=== PATIENT | female | born 1970 | race Caucasian/White ===

== ENCOUNTER 2019-09-25 09:44 | Emergency (ER) | payer BC ==
[2019-09-25 10:46] VITALS: BP 159/92; PULSE 69
[2019-09-25] MEDS: GI Cocktail Oral Solution 30 ML PO ONE (11:10)
[2019-09-25] MEDS: diphenhydrAMINE 50 MG/ML SDV IVPUSH ONE (12:00)
[2019-09-25] MEDS: Iron Sucrose Complex 200 MG in Sodium Chloride 0.9% 100 ML IV ONE (12:21)
--- NOTE | 2019-09-25 12:26 | EDM.PDOC ---
ED HPI GENERAL MEDICAL PROBLEM - General Chief Complaint: Chest Pain Stated Complaint: CHEST PAIN Time Seen by Provider: 09/25/19 10:15 - History of Present Illness INITIAL COMMENTS - FREE TEXT/NARRATIVE: Gradual onset of sharp chest discomfort, along inferior aspect of right sternal border. Was only seated at work. Quickly travelled internally and migrated inferiorly behind the sternum. Some recent dyspepsia, devi at end of larger meals. Definite throat-clearing. Asked for tums, as she is certain of increased GERD. Wellbutrin agreeable. No new bleeding since surgery. Understands difficulty with oral iron. No clear sx's of anemia. No risk factors of thromboembolism as negative Virchow's triad, and no personal or family history suggestive of TE. No nausea or vomiting, melena, or hematochezia. No exertional sx's, near syncope, No SOB, no orthostasis, etc. Not aware of allergic rhinitis recently or upon seasonal basis. Chest Pain Score (Numeric/FACES): 6 - Related Data Allergies Allergy/AdvReac Type Severity Reaction Status Date / Time magnesium salfate Allergy Intermediate Blurred Uncoded 09/25/19 10:38 [facility] Home Meds: Home Meds Cyclobenzaprine [Flexeril] 10 mg PO BID PRN 09/09/15 [History] Acetaminophen [Acetaminophen Extra Strength] 500 mg PO ASDIRECTED PRN 08/28/19 [ History] Escitalopram Oxalate [Lexapro] 20 mg PO DAILY 08/28/19 [History] Ferrous Sulfate [Iron] 325 mg PO DAILY 08/28/19 [History] buPROPion [buPROPion XL] 150 mg PO BEDTIME 09/25/19 [History] Past Medical History HEENT History: Reports: Other (See Below) Other HEENT History: Dry Eyes Cardiovascular History: Reports: Hypertension, Other (See Below) Other Cardiovascular History: Vasovagal response when doing IVs. Other Gastrointestinal History: Gastric sleeve Genitourinary History: Reports: UTI, Recurrent Other WATER PURIFICATION CHEMIST History: Had BTL Musculoskeletal History: Reports: Back Pain, Chronic, Other (See Below) Other Musculoskeletal History: right shoulder pain Psychiatric History: Reports: Panic Attack Endocrine/Metabolic History: Reports: Other (See Below) Other Endocrine/Metabolic History: Hypoglycemic Hematologic History: Reports: Anemia - Past Surgical History Female Surgical History: Reports: Breast Reduction, Tubal Ligation Social & Family History - Tobacco Use Smoking Status *Q: Unknown Ever Smoked ED ROS GENERAL - Review of Systems Review Of Systems: Comprehensive ROS is negative, except as noted in HPI. ED EXAM, GENERAL - Physical Exam Exam: See Below Exam Limited By: No Limitations General Appearance: Alert, WD/WN, No Apparent Distress Eye Exam: Bilateral Eye: EOMI, Normal Inspection Ears: Normal External Exam, Hearing Grossly Normal Nose: Nasal Swelling, Clear Rhinorrhea, Other (bluish and boggy) Throat/Mouth: Normal Inspection, Normal Lips, Normal Teeth, Normal Gums, Normal Voice, Inflammation (erythema) Head: Atraumatic, Normocephalic Neck: Normal Inspection, Supple, Non-Tender, Full Range of Motion. No: Limited Range of Motion, Lymphadenopathy (R), Lymphadenopathy (L), Thyromegaly Course - Vital Signs Text/Narrative:: Discussed differential and unlikely significant underlying pathophysiology aside from definite GERD. Seems may be exacerbated by post-nasal drip, and iron intake orally. Trial of H2 demetrio +/- non-sedating antihistamine on two week basis. Reliable to return. Offered iron sucrose infusions, explained plan to monitor ferritin. Suspect contaminated UA, await cx. No rationale for treatment. Advised to follow blood pressure to resolution. Last Recorded V/S: Last Vital Signs Temp 97.1 F 09/25/19 10:10 Pulse 69 09/25/19 10:46 Resp 15 09/25/19 10:46 BP 159/92 H 09/25/19 10:46 Pulse Ox 99 09/25/19 10:46 - Orders/Labs/Meds Orders: Active Orders 24 hr Category Date Time Status EKG Documentation Completion [RC] ASDIRECTED Care 09/25/19 10:32 Active CULTURE URINE [RM] Stat Lab 09/25/19 14:51 Ordered Labs: Laboratory Tests 09/25/19 09/25/19 09/25/19 Range/Units 10:45 10:45 10:45 WBC 7.1 (4.0-11.0) K/uL RBC 4.39 (3.80-5.80) M/uL Hgb 10.1 L (11.5-16.5) g/dL Hct 32.4 L (37.0-47.0) % MCV 74 L (76-96) fL MCH 23.0 L (27.0-32.0) pg MCHC 31.2 (31.0-35.0) g/dL Plt Count 376 D (150-500) K/uL MPV 9.5 (6.0-10.0) fL Neut % (Auto) 68.2 (45.0-70.0) % Lymph % (Auto) 22.0 (20.0-40.0) % [place] % (Auto) 7.8 (3.0-10.0) % Eos % (Auto) 1.7 (1.0-5.0) % Baso % (Auto) 0.3 (0.0-0.5) % Neut # (Auto) 4.81 (2.00-7.50) K/uL Lymph # (Auto) 1.55 (1.50-4.00) K/uL [place] # (Auto) 0.55 (0.20-0.80) K/uL Eos # (Auto) 0.12 (0.04-0.40) K/uL Baso # (Auto) 0.02 (0.02-0.10) K/uL D-Dimer, Quantitative 507 H (0-400) ng/mL Sodium 140 (136-145) mmol/L Potassium 3.6 (3.5-5.1) mmol/L Chloride 102 (98-107) mmol/L Carbon Dioxide 28.2 (21.0-32.0) mmol/L Anion Gap 13.4 (5.0-15.0) mmol/L BUN 10 (8-26) mg/dL Creatinine 0.90 (0.55-1.02) mg/dL Est Cr Clr Drug Dosing 66.01 mL/min Estimated GFR (MDRD) > 60 (>60) MLS/MIN BUN/Creatinine Ratio 11.1 (6-25) Glucose 70 L D (74-100) mg/dL Calcium 8.5 (8.5-10.1) mg/dL Total Bilirubin 0.5 D (0.0-1.0) mg/dL AST 26 (15-37) U/L ALT 19 (12-78) U/L Alkaline Phosphatase 70 (46-116) U/L Troponin I < 0.017 (0.000-0.060) ng/mL Total Protein 7.3 (6.4-8.2) g/dL Albumin 3.3 L (3.4-5.0) g/dL Globulin 4.0 (2.2-4.2) g/dL Albumin/Globulin Ratio 0.8 (0.8-2.0) Meds: Medications Discontinued Medications Generic Name Dose Route Start Last Admin Trade Name Albertina PRN Reason Stop Dose Admin Al Hydroxide/Mg Hydroxide 30 ml 09/25/19 11:10 09/25/19 11:10 Gi Cocktail PO 09/25/19 11:11 30 ml ONETIME ONE Administration Diphenhydramine HCl Confirm 09/25/19 11:54 09/25/19 13:58 Benadryl Administered 09/25/19 11:55 Not Given Dose 50 mg .ROUTE .STK-MED ONE Diphenhydramine HCl 12.5 mg 09/25/19 11:30 09/25/19 12:00 Benadryl IVPUSH 09/25/19 11:31 12.5 mg ONETIME ONE Administration Iron Sucrose 200 mg/ Sodium 110 mls @ 400 mls/hr 09/25/19 11:43 09/25/19 12: 21 Chloride IV 09/25/19 11:58 400 mls/hr ONETIME ONE Administration Departure - Departure Time of Disposition: 12:15 Disposition: Home, Self-Care 01 Condition: Good Clinical Impression: Anemia Qualifiers: Anemia type: iron deficiency Iron deficiency anemia type: chronic blood loss Qualified Code(s): D50.0 - Iron deficiency anemia secondary to blood loss ( chronic) - Discharge Information Instructions: Anemia, Nonspecific Chest Pain, Adult, [id number] Referrals: PCP,None [Primary Care Provider] - Forms: ED Department Discharge Additional Instructions: Shereen, It was a sincere pleasure to see you, as always. I believe that your chest discomfort was more related to possible GERD rather than a result of your ongoing iron deficiency anemia. Although not low enough to be of concern, your hemoglobin not increasing is probably related to your limited absorption to iron administered orally. You may benefit from coming in to get iron infusions. It just involves starting an IV quickly, and giving a quick infusion , as we did today. If you wanted to return on 5 occasions, perhaps weekly, at your convenience, that might help with you to replete your iron stores quicker. Overall, our goal would be in 3 to 6 months to get your ferritin, probably greater than 100. At that point you could stop taking iron by mouth. You should have this rechecked every 3 to 6 months thereafter to ensure your ferritin does not drop below 50. If that happens, then that would necessitate doing a work-up, but at this point, it was obviously related to your uterine blood loss, until proven otherwise. Please take famotidine (Pepcid) at 20 mg twice a day for 2 weeks. You may also consider cetirizine (zyrtec) at 10 mg by mouth daily for 2 weeks if you notice any nasal allergy symptoms, or frequent throat clearing because of probable postnasal drip. As we discussed, please take your iron supplement every other day on empty stomach with 500 mg of vitamin C. Ferrous polysaccharide at 150 mg tends to be the most well-tolerated preparation. I hope everything is coming along bet, and that the Wellbutrin is negating any other untoward side effects that we discussed. Other options could be, buspirone, increasing the bupropion dose, stopping the SSRI, or other more natural remedies. 1 where another, I hope you have a great day. Please let me know if you have any further chest discomfort or other concerns. Sincerely, Kelvin Keys MD Sepsis Event Note - Evaluation Sepsis Screening Result: No Definite Risk - Focused Exam Vital Signs: Vital Signs Temp Pulse Resp BP Pulse Ox 09/25/19 10:46 69 15 159/92 H 99 09/25/19 10:10 97.1 F 59 L 16 174/77 H 99 09/25/19 10:08 97.1 F 59 L 16 174/77 H 99 Date Exam was Performed: 09/25/19 Time Exam was Performed: 14:52 - My Orders Last 24 Hours: My Active Orders 09/25/19 10:32 EKG Documentation Completion [RC] ASDIRECTED 09/25/19 14:51 CULTURE URINE [RM] Stat - Assessment/Plan Last 24 Hours: My Active Orders 09/25/19 10:32 EKG Documentation Completion [RC] ASDIRECTED 09/25/19 14:51 CULTURE URINE [RM] Stat
[2019-09-25] MEDS: diphenhydrAMINE 50 MG/ML SDV ONE (13:58)
== END 2019-09-25 13:05 | disposition home or self-care (01) ==
LOC: LB.ED 09:44
DX: D50.0 Iron deficiency anemia secondary to blood loss (chronic) (principal); I10 Essential (primary) hypertension; Z79.899 Other long term (current) drug therapy; Z88.8 Allergy status to other drugs, medicaments and biological substances
CPT/HCPCS: 36415; 80053; 84484; 85025; 85379; 93005; 96365; 96375; 99283; 99285; A9270; J1200; J1756; J7050

== ENCOUNTER 2021-06-27 19:05 | Emergency (ER) | payer BC ==
[2021-06-27] MEDS ORDERED: Ondansetron 4 MG Tab.DIS PO ONE (19:38)
[2021-06-27 19:42] VITALS: BP 125/83; PULSE 68
== END 2021-06-27 20:38 | disposition home or self-care (01) ==
LOC: LB.ED 19:05
DX: R07.9 Chest pain, unspecified (principal); F41.9 Anxiety disorder, unspecified; I10 Essential (primary) hypertension; Z88.8 Allergy status to other drugs, medicaments and biological substances; Z79.899 Other long term (current) drug therapy; Z20.822 Contact with and (suspected) exposure to COVID-19
CPT/HCPCS: 36415; 80048; 84484; 85025; 87635; 93005; 99285; Q0162; 99284; U0002

== ENCOUNTER 2021-09-15 10:46 | Day surgery (SDC) | payer BC ==
[~2021-09-15 10:46] MED LIST: Metoclopramide 10 MG/2 ML SDV IV PRN; Sodium Chloride 0.9% 1,000 ML IV SCH
[2021-09-15] MEDS ORDERED: Propofol 1,000 MG/100 ML SDV ONE (13:10)
[2021-09-15 13:29] VITALS: PULSE 64
[2021-09-15 15:23] VITALS: BP 105/66
== END 2021-09-15 13:57 | disposition home or self-care (01) ==
LOC: LB.SDS 10:46
PROVIDERS: ATTEND Surgery
DX: Z12.11 Encounter for screening for malignant neoplasm of colon (principal); Z88.2 Allergy status to sulfonamides; Z88.8 Allergy status to other drugs, medicaments and biological substances; Z79.899 Other long term (current) drug therapy
CPT/HCPCS: J2704; J7030

== ENCOUNTER 2022-09-28 11:48 | Emergency (ER) | payer BC ==
[2022-09-28 12:29] VITALS: BP 98/71; PULSE 72
[2022-09-28 12:29] LABS: BASOPHILS ABSOLUTE AUTO 0.02 K/uL (0.02-0.10); BASOPHILS PERCENT AUTO 0.3 % (0.0-0.5); EOSINOPHILS ABSOLUTE AUTO 0.07 K/uL (0.04-0.40); EOSINOPHILS PERCENT AUTO 0.9 % (1.0-5.0); HEMATOCRIT 44.1 % (37.0-47.0); HEMOGLOBIN 14.9 g/dL (11.5-16.5); LYMPHOCYTES ABSOLUTE AUTO 2.19 K/uL (1.50-4.00); LYMPHOCYTES PERCENT AUTO 29.4 % (20.0-40.0); MEAN CORPUSCULAR HEMOGLOBIN 29.3 pg (27.0-32.0); MEAN CORPUSCULAR HGB CONC 33.8 g/dL (31.0-35.0); MEAN CORPUSCULAR VOLUME 87 fL (76-96); MEAN PLATELET VOLUME 9.8 fL (6.0-10.0); MONOCYTES ABSOLUTE AUTO 0.53 K/uL (0.20-0.80); MONOCYTES PERCENT AUTO 7.1 % (3.0-10.0); NEUTROPHILS ABSOLUTE AUTO 4.63 K/uL (2.00-7.50); NEUTROPHILS PERCENT AUTO 62.3 % (45.0-70.0); PLATELET COUNT,PLT 353 K/uL (150-500); RED BLOOD CELL COUNT 5.08 M/uL (3.80-5.80); RED CELL DISTRIBUTION WIDTH 13.2 % (11.0-16.0); WHITE BLOOD CELL COUNT,WBC 7.4 K/uL (4.0-11.0)
[2022-09-28 12:49] LABS: ANION GAP 12.4 mmol/L (5.0-15.0); BILIRUBIN TOTAL 0.6 mg/dL (0.0-1.0); BUN/CREATININE RATIO 13.6 (6-25); CARBON DIOXIDE,CO2 29.8 mmol/L (21.0-32.0); CREATININE 1.47 mg/dL (0.55-1.02); EST CRCL DRUG DOSING (CG) 40.74 mL/min; POTASSIUM,K 4.2 mmol/L (3.5-5.1); PROTEIN TOTAL,TP 8.1 g/dL (6.4-8.2)
== END 2022-09-28 13:18 | disposition home or self-care (01) ==
LOC: LB.ED 11:48
DX: I95.9 Hypotension, unspecified (principal); R79.89 Other specified abnormal findings of blood chemistry; I10 Essential (primary) hypertension; Z79.899 Other long term (current) drug therapy
CPT/HCPCS: 36415; 80053; 85025; 93005; 93010; 99283